=== PATIENT | female | born 1955 | race Caucasian/White ===

== ENCOUNTER → 2020-04-10 | Day surgery (SDC) | payer OTHER ==
[~2020-04-10] MED LIST: ADVAIR 250-501 EACH INH; BREO ELLIPTA 11 EACH INH; DEXILANT60 MG PO; DILTIAZEM 24HR240 M1 PO; IBUPROFEN 800800 M1 PO; IPRAT-ALBUT 0.5-3 ML INH; OLMESARTAN MEDO40 MG PO; ROXICODONE5 M2 PO; SINGULAIR 10 MG10 M1 PO; TRAMADOL 50 MG50 MG PO
[2020-04-10 07:01] LABS: HEMOGLOBIN 14.3 gm/dL (12.0-15.0); MCH 30.2 pg (26.0-34.0); MPV 6.7 fl. (7.2-11.1); RBC 4.73 mil/uL (4.20-5.00); RDW-CV 13.4 % (10.5-14.5); WBC 8.3 thou/uL (4.0-11.0)
[2020-04-10 07:11] LABS: CALCIUM 8.6 mg/dL (8.5-10.1); CREATININE 0.9 mg/dL (0.6-1.3); POTASSIUM 3.8 mmol/L (3.5-5.1)
--- NOTE | 2020-04-10 09:22 | EKG ---
[place] [address] ELECTROCARDIOGRAM REPORT Name: YUMI KING Room: [facility]#: [id number] Admission: 04/10/20 Attend Phys: Marcial Cabrera Discharge: Date of : 53 Date of Service: 04/10/20737 Report #: [id number] THIS REPORT FOR: //name// [facility] Test Date: 2020-04-10 Test Time: 07:38:51 Pat Name: YUMI KING Department: Room: Gender: Director Of Media: : 1955 Requested By: Marcial Cabrera Order Number: [id number] Reading MD: Jose Alberto Russell Measurements Intervals [place] Rate: 73 P: 42 [place]: 182 QRS: 21 QRSD: 87 T: 46 QT: 394 QTc: 435 Interpretive Statements Sinus rhythm No previous ECG available for comparison Electronically Signed On 04-10-2020 9:22:39 ADDICTION PROFESSIONAL by Jose Alberto Russell [email or web address] <ELECTRONICALLY SIGNED> By: Jose Alberto Russell MD, [facility] 04/10/20921 7 7 Jose Alberto Russell MD, FACC /EPI
--- NOTE | 2020-04-12 16:06 | PATH ---
[address] [address] PATHOLOGY RPT PROCEDURE Name: RUBY NOLAND Room: [facility].#: [id number] Admission: 04/10/20 Date of : 53 Discharge: Report #: [id number] Path Case #: [id number] [facility] Accession Number: [id number] . 01 Material submitted: . PART A: calf - LEFT CALF SUPERIOR MASS 7 X 4 X 1. Modifiers: left, superior PART B: calf - LEFT CALF INFERIOR MASS 11 X 6 X 1.5. Modifiers: left, inferior PART C: back - RIGHT UPPER BACK MASS 1.5 X 3.5 X 0.5. Modifiers: right, upper PART D: calf - LEFT CALF MEDIAL MASS 5.5 X 3 X1. Modifiers: left, medial PART E: calf - RIGHT CALF MASS 4 X 3 X 0.5. Modifiers: right . 01 Clinical history: . LIPOMAS OF BACK, AND RIGHT AND LEFT LOWER EXTREMITIES . 02 Diagnosis: A. Left calf superior mass (7 x 4 x 1): - Lipoma and overlying benign skin. . B. Left calf inferior mass (11 x 6 x 1.5): - Consistent with lipoma. . C. Right upper back mass (1.5 x 3.5 x 0.5): - Consistent with lipoma. . D. Left calf medial mass (5.5 x 3 x 1): - Lipoma. . E. Right calf mass (4 x 3 x 0.5): - Consistent with lipoma. (BRITTNI:roby; 04/12/2020) S 04/12/2020 1302 Local . 02 Electronically signed: . Jah Perez MD, Pathologist NPI- [id number] . 01 Gross description: . A. The specimen is received in formalin, labeled "Ruby Noland, left calf superior mass" and consists of an irregular segment of yellow lobulated tissue measuring 5.0 x 3.9 x 2.8 cm with an overlying 2.8 x 1.4 cm elliptical segment of skin. Section reveals homogeneous yellow cut surfaces and direct sales representative sections are submitted in A1-A3. . B. The specimen is received in formalin, labeled "Ruby Noland, left calf inferior mass" and consists of multiple irregular segments of yellow lobulated tissue measuring 8.0 x 7.7 x 2.6 [place] [address] PATHOLOGY RPT PROCEDURE Name: RUBY NOLAND Room: [facility]#: [id number] Admission: 04/10/20 Date of : 53 Discharge: Report #: [id number] Path Case #: [id number] reveals homogeneous yellow cut surfaces and direct sales representative sections are submitted in B1-B3. . C. The specimen is received in formalin, labeled "Ruby Noland, right upper back mass" and consists of multiple irregular segments of yellow lobulated tissue measuring 4.6 x 4.2 x 1.2 cm. Sectioning shows homogeneous yellow orange cut surfaces and direct sales representative tissue is submitted in C1-C2. . D. The specimen is received in formalin, labeled "[place], Ruby, left calf medial mass" and consists of a partially encapsulated segment of yellow lobulated tissue measuring 3.8 x 2.8 x 2.1 cm. Sectioning shows homogeneous yellow cut surfaces and direct sales representative tissue is submitted in D1. . E. The specimen is received in formalin, labeled "[place], Ruby, right calf mass" and consists of multiple irregular segments of yellow lobulated tissue measuring 5.2 x 4.0 x 1.6 cm in aggregate. Sectioning reveals homogeneous yellow cut surfaces and direct sales representative sections are submitted in E1-E2. (SDY; 04/11/2020) SYU/SYU 04/12/2020 1255 Local . 02 Pathologist provided ICD-10: D17.24 . 02 CPT . 605057, 139014, 256154, 330718, 837879 Specimen Comment: A courtesy copy of this report has been sent to [phone], [phone] Specimen Comment: [phone] Specimen Comment: Report sent to / DR VALLE Performed at: 01 [facility] [address], [place], [place] [id number] MD Deshawn Melendez MD Phone: [phone] Performed at: 02 [facility] [address], [place], [place] [id number] MD Jah Perez MD Phone: [phone]
--- NOTE | 2020-04-13 22:06 | OP ---
[address] [address] OPERATIVE REPORT Name: YUMI KING Room: [facility].#: [id number] Admission: 04/10/20 Attend Phys: Selwyn Isaac Discharge: Date of : 53 Report #: [id number] THIS REPORT FOR: //name// cc: Kadeem Pollock MD, Michael S. MD ~ CC: Marcial Ocampo DICTATED BY: Jewels Moya DO DATE OF SERVICE: 04/10/2020 PREOPERATIVE DIAGNOSES: Right upper back mass, left calf mass x 3, right calf mass x 1. POSTOPERATIVE DIAGNOSES: Right upper back mass, left calf mass x 3, right calf mass x 1. PROCEDURE PERFORMED: Excision of right upper back mass, excision of left calf masses x 3, excision of right calf mass x 1. PRIMARY SURGEON: Marcial Cabrera DO CLINICAL GENETICIST: Jewels Moya DO, PGY3 SECOND HEALTHCARE MANAGEMENT CONSULTANT: Dylan Kan MS4 THIRD HEALTHCARE MANAGEMENT CONSULTANT: Selvin Hrenandez MS4 ANESTHESIA: General and local. ESTIMATED BLOOD LOSS: 10 mL. SPECIMEN REMOVED: Right upper back mass, left superior calf mass, left inferior calf mass, left medial calf mass and right calf mass. COMPLICATIONS: None. FINDINGS: Right upper back mass that measured 4.5 x 3.5 x 0.5 cm, left superior calf mass that measured 7 x 4 x 1 cm, left inferior calf mass that measured 11 x 6 x 1.5 cm. This dissection was down to the level of the muscle fascia. Left medial calf mass that measured 5.5 x 3 x 1 cm and right calf mass that measured 4 x 3 x 0.[address] [place] [address] OPERATIVE REPORT Name: YUMI KING Room: [facility]#: [id number] Admission: 04/10/20 Attend Phys: Selwyn Isaac Discharge: Date of : 53 Report #: [id number] INDICATIONS FOR PROCEDURE: The patient is a pleasant 64-year-old female that presented to our office with complaint of multiple soft tissue masses that were becoming increasingly uncomfortable. It was recommended that she undergo excision of these masses under general anesthesia. The procedure, risks, benefits, possible complications to include bleeding, infection, injury to surrounding structures, need for additional surgery, wound healing complications, risk of anesthesia, and other risks of surgery were discussed with the patient in great detail. She voiced complete understanding and wished to proceed with surgery. DESCRIPTION OF PROCEDURE: Informed consent was obtained. The patient was taken to the operating room and placed supine on the operating room table. General endotracheal anesthesia was induced without difficulty. SCDs were placed on bilateral lower extremities. Preoperative antibiotics were given. The patient was placed in the prone position with all pressure points padded. Each of the mass was prepped and draped in the standard sterile fashion. A timeout was performed to ensure correct patient and procedure. We began by making an initial incision over the right upper back mass using a #15 blade scalpel. Incision was carried down through the subcutaneous tissues using electrocautery. Combination of electrocautery and blunt dissection were used to completely excise the mass. It appeared to be a fatty mass consistent with likely a lipoma, but it was not well encapsulated. Once completely excised the mass measured approximately 4.5 x 3.5 x 0.5 cm. This was passed off for permanent specimen. The wound was inspected to ensure hemostasis. Wound was copiously irrigated with sterile saline. The deep subcutaneous tissue was reapproximated using 3-0 Vicryl suture in a simple interrupted and inverted fashion. The skin was closed using 4-0 Monocryl suture in a running subcuticular fashion. The left superior calf mass was then inspected. A horizontal elliptical incision was made around a raised area in the skin. This incision was then carried down through the subcutaneous tissues using electrocautery. Combination of electrocautery and blunt dissection were used to completely excise this mass. It appeared to be a fairly well encapsulated lipoma with some extensions into the surrounding tissues. Once the mass was completely excised, it measured approximately 7 x 4 x 1 cm. The wound was inspected to ensure hemostasis and irrigated with sterile saline. The deep subcutaneous tissue was reapproximated using 3-0 Vicryl suture in a simple interrupted and inverted fashion. More superficial subcutaneous tissues reapproximated using 3-0 Vicryl suture in a simple interrupted and inverted fashion. Skin was closed using 4-0 Monocryl suture in a running subcuticular fashion. The left inferior calf mass was palpated. A vertical incision was made over the area of the palpable mass. Incision was carried down through the subcutaneous tissues using electrocautery. A combination of blunt dissection and electrocautery were used to completely excise this mass. It was deep down to the level of the muscle fascia. It was not well encapsulated, but appeared to be a fatty mass, likely lipoma. Once it was completely excised, it measured approximately 11 cm x 6 cm x 1.5 cm. It was passed off for permanent specimen. The wound was irrigated [place] [address] OPERATIVE REPORT Name: YUMI KING Room: [facility]#: [id number] Admission: 04/10/20 Attend Phys: Selwyn Isaac Discharge: Date of : 53 Report #: [id number] The potential space was then closed down using 3-0 Vicryl suture in a simple interrupted inverted fashion, and the subcutaneous tissue was reapproximated using 3-0 Vicryl suture in a simple interrupted and inverted fashion. Skin was closed using 4-0 Monocryl suture in a running subcuticular fashion. The left medial calf mass was palpated. A horizontal incision was made using a #15 blade scalpel over the area of the palpable mass. Incision was carried down through the subcutaneous tissues using electrocautery. A combination of blunt dissection and electrocautery were used to completely excise the mass from the surrounding tissues. It appeared to be slightly more encapsulated than the previous mass. It was also passed off for specimen and measured 5.5 x 3 x 1 cm. Wound was irrigated. The deep subcutaneous tissue was reapproximated using 3-0 Vicryl suture in a simple interrupted and inverted fashion. The skin was closed using 4-0 Monocryl suture in a running subcuticular fashion. The right calf mass was then palpated. A horizontal incision was made using a #15 blade scalpel. Incision was carried down through the subcutaneous tissues using electrocautery. Combination of blunt dissection and electrocautery were used to excise the mass completely from the surrounding tissues. Once the mass was completely excised from the surrounding tissues, it measured approximately 4 x 3 x 0.5 cm. It was passed off for permanent specimen. The subcutaneous tissues were reapproximated using 3-0 Vicryl suture in a simple interrupted and inverted fashion. The skin was closed using 4-0 Monocryl suture in a running subcuticular fashion. The skin was cleansed and dried. Dermabond was applied to each incision. Approximately 30 mL of 0.5% Marcaine were used for local anesthesia. The patient tolerated the procedure very well. She was allowed to awaken in the operating room and she was transferred to the PACU in stable condition with plans to discharge home later today. <ELECTRONICALLY SIGNED> By: Marcial Cabrera DO 04/13/20 2206 1150 1219Marcial Cabrera DO /nt
== END | disposition home or self-care (01) ==
LOC: M.SUR 06:20
PROVIDERS: ATTEND Surgery
DX: D17.1 Benign lipomatous neoplasm of skin and subcutaneous tissue of trunk (principal); D17.24 Benign lipomatous neoplasm of skin and subcutaneous tissue of left leg; D17.23 Benign lipomatous neoplasm of skin and subcutaneous tissue of right leg; Z98.890 Other specified postprocedural states; Z79.899 Other long term (current) drug therapy; Z88.2 Allergy status to sulfonamides; Z88.8 Allergy status to other drugs, medicaments and biological substances; Z20.828 Contact with and (suspected) exposure to other viral communicable diseases